=== PATIENT | male | born 1985 ===

== ENCOUNTER 2017-08-02 10:34 | Emergency (ER) | payer BC ==
[2017-08-02 11:10] VITALS: BMI 34.2
[2017-08-02 11:13] VITALS: TEMP 98.2
[2017-08-02 11:51] VITALS: RESP 18
--- NOTE | 2017-08-02 12:27 | RAD ---
PROCEDURE: Radiographs of the Right Shoulder HISTORY: Right shoulder pain COMPARISON: No prior. FINDINGS: BONES: Normal. No fracture. JOINTS: Glenohumeral and acromioclavicular joints trace arthrosis suggested SOFT TISSUES: Normal. OTHER FINDINGS: None. IMPRESSION: No fracture. No periarticular calcifications Trace right shoulder arthrosis
--- NOTE | 2017-08-02 12:57 | ED PDOC ---
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 Pain is localized over right lateral deltoid and posterior shoulder above scapular spine. Pain has progressively gotten worse to the point he can no longer actively lift and work. Rest and ice make it better. Denies Trauma to the area. Denies: numbness/tingling in extremities. 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 (Nic Reyes) Past Medical History - Provider Review Nursing Documentation Reviewed: Yes - Travel History Have you recently traveled outside [place] w/in the past 3 mons?: No - Past History Past History: Non-Contributing - Infectious Disease Hx of Infectious Diseases: None - Tetanus Immunization Tetanus Immunization: Unknown - Psychiatric Hx Depression: No Hx Emotional Abuse: No Hx Physical Abuse: No Hx Substance Use: No - Past Surgical History Past Surgical History: No Previous - Anesthesia Hx Anesthesia: No - Suicidal Assessment Feels Threatened In Home Enviroment: No Family/Social History - Physician Review Nursing Documentation Reviewed: Yes Family/Social History: Other (non-contributory) Smoking Status: Unknown If Ever Smoked Hx Alcohol Use: No Hx Substance Use: No Hx Substance Use Treatment: No Allergies/Home Meds Allergies/Adverse Reactions: Allergies No Known Allergies Allergy (Verified 08/02/17 11:34) Review of Systems - Review of Systems Constitutional: absent: Fatigue, Weight Change, Fevers Eyes: absent: Vision Changes, Photophobia, Eye Pain ENT: absent: Hearing Changes, Tinnitus, Sore Throat, Rhinorrhea Respiratory: absent: SOB, Cough, Sputum Cardiovascular: absent: Chest Pain, Palpitations, Calf Pain Gastrointestinal: absent: Abdominal Pain, Stool Changes, Constipation, Diarrhea , Nausea, Vomiting Genitourinary Male: absent: Dysuria Musculoskeletal: Joint Swelling (Right shoulder) Skin: absent: Rash, Pruritis Neurological: absent: Headache, Dizziness Endocrine: absent: Diaphoresis Hemo/Lymphatic: absent: Adenopathy Physical Exam Vital Signs Reviewed: Yes Temperature: Afebrile Blood Pressure: Normal Pulse: Regular Respiratory Rate: Normal Appearance: Positive for: Well-Appearing, Non-Toxic, Comfortable Pain Distress: None Mental Status: Positive for: Alert and Oriented X 3 - Systems Exam Head: Present: Atraumatic, Normocephalic Pupils: Present: PERRL Extroacular Muscles: Present: EOMI Conjunctiva: Present: Normal Mouth: Present: Moist Mucous Membranes Neck: Present: Normal Range of Motion Respiratory/Chest: Present: Clear to Auscultation, Good Air Exchange. No: Respiratory Distress, Accessory Muscle Use Cardiovascular: Present: Regular Rate and Rhythm, Normal S1, S2. No: Murmurs Abdomen: No: Tenderness, Distention, Peritoneal Signs Upper Extremity: Present: NORMAL PULSES, Other (Right shoulder point tenderness along lateral deltoid. + empty can, + Hawkings; Muscle strength 5/5). No: Cyanosis, Edema Lower Extremity: Present: Normal Inspection Neurological: Present: GCS=15, Speech Normal Skin: Present: Warm Psychiatric: Present: Alert, Oriented x 3 Vital Signs Temp Pulse Resp BP Pulse Ox 08/02/17 13:14 72 18 145/79 100 08/02/17 11:50 77 18 148/81 98 08/02/17 11:11 98.2 F 95 H 17 198/81 H 100 Medical Decision Making - RAD Interpretation Instrument Technologist: Radiologist ED Course and Treatment: 08/02/17 13:00 Complete shoulder exam, including ROM and special tests + Empty can + Hawkings -speeds - yergasins Shoulder Xray IM toradol Re-eval & Dispo (Nic Reyes) Seen and examined with resident. 31 y/o M c R shoulder pain x weeks. On exam, R shoulder tenderness, able to range, no erythema, no fever. (Brenden Mauricio) - RAD Interpretation Narrative RAD Interpretations (Text): 08/02/17 13:02 No acute changes on Right shoulder X-Ray (Nic Reyes) Radiology Orders: 08/02/17 11:33 SHOULDER RIGHT [RAD] Stat - Medication Orders Current Medication Orders: Discontinued Medications Ibuprofen (Motrin Tab) 800 mg PO STAT STA Stop: 08/02/17 11:33 Last Admin: 08/02/17 11:52 Dose: 800 mg Re-Assess: MAR Pain/Vitals Document 08/02/17 12:52 HI (Rec: 08/02/17 13:19 HI [id number]) Pain Reassessment Is This A Pain ReAssessment? Yes Sleep Is patient sleeping during reassessment? Yes Ketorolac Tromethamine (Toradol) 60 mg IM STAT STA Stop: 08/02/17 11:33 Last Admin: 08/02/17 11:51 Dose: 60 mg MAR Pain Assessment Document 08/02/17 11:51 HI (Rec: 08/02/17 11:52 HI [id number]) Pain Reassessment Is this a pain reassessment? No IM Administration Charges Document 08/02/17 11:51 HI (Rec: 08/02/17 11:52 HI [id number]) Injection Site MAR Injection Site Right Gluteus Hipolito Charges for Administration # of IM Administrations 1 Re-Assess: [facility] Pain Assessment Document 08/02/17 12:51 HI (Rec: 08/02/17 13:19 HI [id number]) Pain Reassessment Is this a pain reassessment? Yes Sleep Is patient sleeping during reassessment? Yes - PA / BELT [employer]ANDER [employer]ONE / Resident Statement MD/DO has reviewed & agrees with the documentation as recorded. MD/DO has examined the patient and agrees with the treatment plan. Disposition/Present on Arrival - Present on Arrival Any Indicators Present on Arrival: No History of DVT/PE: No History of Uncontrolled Diabetes: No Urinary Catheter: No History of Decub. Ulcer: No History Surgical Site Infection Following: None - Disposition Have Diagnosis and Disposition been Completed?: Yes Disposition Time: 13:03 Patient Plan: Discharge - Disposition Diagnosis: Shoulder impingement, Shoulder pain Disposition: HOME/ ROUTINE Condition: GOOD Discharge Instructions (ExitCare): Shoulder Impingement (DC) Additional Instructions: Thank you for letting us take care of you today. You were treated for Right Shoulder pain, Impingement vs Shoulder strain vs torn rotator cuff muscle. The emergency medical care you received today was directed at your acute symptoms. If you were prescribed any medication, please fill it and take as directed. It may take several days for your symptoms to resolve. Return to the Emergency Department if your symptoms worsen, do not improve, or if you have any other problems. Ice the Area as needed. Can take Ibuprofen to help decrease pain and swelling. We recommend following up with an orthopaedic physician. Two have been listed as a referral in this packet. Please contact your doctor or call one of the physicians/clinics you have been referred to that are listed on the Patient Visit Information form that is included in your discharge packet. Bring any paperwork you were given at discharge with you along with any medications you are taking to your follow up visit. Our treatment cannot replace ongoing medical care by a primary care provider (PCP) outside of the emergency department. Shoulder XRay shows no fractures or acute changes. Thank you for allowing the [facility] team to be part of your care today. Prescriptions: Ibuprofen [Motrin Tab] 800 mg PO Q6 PRN #20 tab PRN Reason: Pain, Moderate (4-7) Referrals: Shauna Gomez, [Primary Care Provider] - Follow up with primary Erick Fischer MD [Staff Provider] - Follow up with primary Abhi Foster DO [Staff Provider] - Follow up with primary Forms: [employer] (S[place]an), WORK NOTE
[2017-08-02 13:19] VITALS: BP 145/79; PULSE 72; O2SAT 100
== END 2017-08-02 13:14 | disposition home or self-care (01) ==
LOC: ED 10:34
DX: M25.511 Pain in right shoulder (principal); M25.811 Other specified joint disorders, right shoulder
CPT/HCPCS: 73030; 96372; 99283; J1885

== ENCOUNTER 2018-04-27 17:12 | Emergency (ER) | payer BC ==
[2018-04-27 17:22] VITALS: BMI 33.5
[2018-04-27 17:55] LABS: BASO # 0.01 K/mm3 (0.0-2.0); BASO % 0.1 % (0.0-3.0); EOS # 0.2 (0.0-0.7); EOS % 2.7 % (1.5-5.0); GRAN # 3.32 (1.4-6.5); GRAN % 49.6 % (50.0-68.0); HEMOGLOBIN 15.4 g/dL (14.0-18.0); LYMPH # 2.8 (1.2-3.4); LYMPH % 42.5 % (22.0-35.0); MEAN CELL VOLUME 88.2 fl (80.0-105.0); MEAN CORPUSCULAR HEMOGLOBIN 29.9 pg (25.0-35.0); MEAN CORPUSCULAR HGB CONC 33.9 g/dl (31.0-37.0); MEAN PLATELET VOLUME 11.8 fl (7.0-11.0); MONO # 0.3 (0.1-0.6); MONO % 5.1 % (1.0-6.0); RBC 5.15 10^6/uL (3.5-6.1); RED CELL DISTRIBUTION WIDTH 12.6 % (11.5-14.5); WHITE BLOOD COUNT 6.7 10^3/uL (4.5-11.0)
--- NOTE | 2018-04-27 18:13 | ED PDOC ---
Arrival/HPI - General Chief Complaint: Chest Pain Time Seen by Provider: 04/27/18 17:13 Historian: Patient - History of Present Illness Narrative History of Present Illness (Text): 04/27/18 17:30 32 year old M ex-smoker(8 years w/ 7 pk/wk) presenting to the Emergency Room with complaint of chest pain that occurred earlier in the day. 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 He describes the pain as sharp, lasting for 10 minutes, resolving on its own. He denies taking any medications for the pain is is currently pain free. The patient denies any previous history of similar episodes. He admits to a family history of maternal cardiovascular disease. The patient denies any dizziness, syncopal episodes, shortness of breath, back pain, abdominal pain, numbness & tingling, dysuria/hematuria, headache, nausea or emesis. PCP: Dr. Taylor Time/Duration: 4-6 hours Symptom Onset: Sudden Symptom Course: Resolved Quality: Aching Activities at Onset: Rest Context: Work Past Medical History - Provider Review Nursing Documentation Reviewed: Yes - Travel History Have you recently traveled outside [place] w/in the past 3 mons?: No - Past History Past History: Non-Contributing - Infectious Disease Hx of Infectious Diseases: None - Tetanus Immunization Tetanus Immunization: Unknown - Psychiatric Hx Depression: No Hx Emotional Abuse: No Hx Physical Abuse: No Hx Substance Use: No - Past Surgical History Past Surgical History: No Previous - Anesthesia Hx Anesthesia: No - Suicidal Assessment Feels Threatened In Home Enviroment: No Family/Social History - Physician Review Nursing Documentation Reviewed: Yes Family/Social History: Hypertension Smoking Status: Former Smoker (grandmother) Hx Alcohol Use: No Hx Substance Use: No Hx Substance Use Treatment: No Allergies/Home Meds Allergies/Adverse Reactions: Allergies No Known Allergies Allergy (Verified 08/02/17 11:34) Review of Systems - Physician Review All systems were reviewed & negative as marked: Yes - Review of Systems Respiratory: absent: SOB, Cough, Sputum, Wheezing Cardiovascular: Chest Pain. absent: Palpitations, Edema, Calf Pain Gastrointestinal: absent: Abdominal Pain, Constipation, Diarrhea Genitourinary Male: absent: Dysuria Musculoskeletal: absent: Back Pain, Neck Pain Physical Exam Vital Signs Reviewed: Yes Temperature: Afebrile Blood Pressure: Normal Pulse: Regular Respiratory Rate: Normal Appearance: Positive for: Well-Appearing, Non-Toxic, Comfortable Mental Status: Positive for: Alert and Oriented X 3 - Systems Exam Head: Present: Atraumatic, Normocephalic Pupils: Present: PERRL Extroacular Muscles: Present: EOMI Conjunctiva: Present: Normal Mouth: Present: Moist Mucous Membranes Neck: Present: Normal Range of Motion Respiratory/Chest: Present: Clear to Auscultation, Good Air Exchange. No: Respiratory Distress Cardiovascular: Present: Regular Rate and Rhythm, Normal S1, S2. No: Murmurs Abdomen: Present: Normal Bowel Sounds. No: Tenderness, Distention Upper Extremity: Present: Normal Inspection. No: Cyanosis, Edema Lower Extremity: Present: Normal Inspection. No: Edema Neurological: Present: GCS=15, CN II-XII Intact, Speech Normal Skin: Present: Warm, Dry, Normal Color. No: Rashes Psychiatric: Present: Alert, Oriented x 3, Normal Insight, Normal Concentration Medical Decision Making ED Course and Treatment: 04/27/18 18:16 Impression 32 year old M w/ sudden onset of R sided chest pain self-resolved in nature HEART Score: 1 (low risk) Differential Diagnoses Includes But Is Not Limited To: --ACS --Pericarditis/Myocarditis --PE --Costochondritis Plan --Labs --Urinalysis --UDS --CXR --Reassess & disposition Progress Notes 04/27/18 18:24 Troponin negative with negative D-dimer. Patient reevaluated and denies any complaints at this time. 04/27/18 18:56 Urinalysis shows trace Urinalysis. Patient updated on findings and is aware of trace blood present in the urine and is aware as well as the PCP. Urology follow up provided. He is advised to monitor his symptoms and return should symptoms arise. Patient is stable for discharge. - Lab Interpretations Lab Results: 04/27/18 17:30 Lab Results 04/27/18 17:30: Troponin I < 0.01 04/27/18 17:30: D-Dimer, Quantitative < 200 04/27/18 17:30: WBC 6.7, RBC 5.15, Hgb 15.4, Hct 45.4, MCV 88.2, MCH 29.9, MCHC 33.9, RDW 12.6, Plt Count 208, MPV 11.8 H, Gran % 49.6 L, Lymph % (Auto) 42.5 H, Lake % (Auto) 5.1, Eos % (Auto) 2.7, Baso % (Auto) 0.1, Gran # 3.32, Lymph # (Auto) 2.8, Lake # (Auto) 0.3, Eos # (Auto) 0.2, Baso # (Auto) 0.01 - RAD Interpretation Radiology Orders: 04/27/18 17:29 CHEST PORTABLE [RAD] Stat - EKG Interpretation EKG Interpretation (Text): 04/27/18 18:32 NSR @ 80bpm No T wave inversions No ST elevations/depressions Interpreted by ED Physician: Yes Type: 12 lead EKG Disposition/Present on Arrival - Present on Arrival Any Indicators Present on Arrival: No History of DVT/PE: No History of Uncontrolled Diabetes: No Urinary Catheter: No History of Decub. Ulcer: No History Surgical Site Infection Following: None - Disposition Have Diagnosis and Disposition been Completed?: Yes Diagnosis: Chest pain, Hematuria Disposition: HOME/ ROUTINE Disposition Time: 18:56 Patient Plan: Discharge Condition: STABLE Discharge Instructions (ExitCare): Chest Pain That Is Not Caused by the Heart (DC), Blood in the Urine (Hematuria), Adult (DC), Chest Pain (ED) Print Language: [place]IZ[place] Referrals: Lauren Ramachandran MD [Medical Doctor] - Follow up with primary [facility] [Outside] - Follow up with primary Morenita Horan MD [Staff Provider] - Follow up with primary Forms: [employer] (Danish), WORK NOTE
--- NOTE | 2018-04-27 18:34 | RAD ---
HISTORY: chest pain COMPARISON: None available. TECHNIQUE: Chest, one view. FINDINGS: Examination limited by habitus. LUNGS: No focal consolidation. Please note that chest x-ray has limited sensitivity for the detection of pulmonary masses. PLEURA: No significant pleural effusion identified. No definite pneumothorax . CARDIOVASCULAR: Heart size appears within normal limits. No significant atherosclerotic calcification present. OSSEOUS STRUCTURES: No acute osseous abnormality identified. VISUALIZED UPPER ABDOMEN: Unremarkable. OTHER FINDINGS: None. IMPRESSION: No focal consolidation.
[2018-04-27 18:49] LABS: PH,URINE 6.5 (4.7-8.0); URINE BILIRUBIN NEGATIVE (NEGATIVE); URINE BLOOD TRACE-INTACT (NEGATIVE); URINE GLUCOSE (UA) NEGATIVE (NEGATIVE); URINE LEUKOCYTE ESTERASE NEGATIVE Leu/uL (NEGATIVE); URINE PROTEIN NEGATIVE mg/dL (<30 mg/dL)
[2018-04-27 18:51] LABS: URINE APPEARANCE CLEAR (CLEAR); URINE COLOR LIGHT YELLOW (YELLOW)
[2018-04-27 18:54] LABS: URINE BACTERIA NEG (NEG); URINE RBC 0 - 2 /hpf (0-2); URINE WBC NEGATIVE /hpf (0-6)
[2018-04-27 19:25] VITALS: BP 129/90; PULSE 75; RESP 16; TEMP 98; O2SAT 99
--- NOTE | 2018-04-27 21:40 | CARD ---
APPROVED REPORT Date of service: 04/27/2018 EKG Measurement Heart [id number] <Conclusion> Normal sinus rhythm Normal ECG
== END 2018-04-27 19:24 | disposition home or self-care (01) ==
LOC: ED 17:12
DX: R31.9 Hematuria, unspecified (principal); R07.9 Chest pain, unspecified; Z87.891 Personal history of nicotine dependence